=== PATIENT | male | born 1945 | race Caucasian/White ===

== ENCOUNTER 2023-11-25 08:01 | Day surgery (SDC) | payer MEDICARE ==
[~2023-11-25] VITALS: Ht 182.9 cm; Wt 97.5 kg
[~2023-11-25 08:01] MED LIST: ATORVASTATIN CA10 MG PO; BAYER ASPIRIN E81 MG PO; CYMBALTA30 MG PO; EPLERENONE25 MG PO; GABAPENTIN300 M2 PO; GLUCOTROL XL10 MG PO; JARDIANCE25 MG PO; METFORMIN HCL1000 MG PO; NEBIVOLOL PO; OMEPRAZOLE DR40 MG PO; PROSCAR5 MG PO; ZOFRAN4 MG/TAB PO
[2023-11-25] MEDS ORDERED: SODIUM CHLORIDE 0.9% 1,000 ML IV ONE (08:09)
[2023-11-25] MEDS ORDERED: FAMOTIDINE 10MG/ML 2ML SDV IV ONE (08:09)
[2023-11-25 10:03] VITALS: BP 120/70
[2023-11-25] MEDS ORDERED: PROPOFOL 200 MG/20 ML VIAL IV ONE (11:46)
[2023-11-25] MEDS ORDERED: GLYCOPYRROLATE 0.2 MG/ML IV ONE (11:46)
[2023-11-25] MEDS ORDERED: LIDOCAINE HCL 2% 2ML SDV IV ONE (11:46)
== END 2023-11-25 10:10 | disposition home or self-care (01) ==
LOC: ENDO 08:01 → ORM 11:40 → ENDO 11:40 → ORM 12:45
PROVIDERS: ATTEND Internal Medicine Gastroenterology
PROC: 0DB58ZX Excision of Esophagus, Via Natural or Artificial Opening Endoscopic, Diagnostic (ICD-10-PCS; principal; 2023-11-25)
PROC: 0DB78ZX Excision of Stomach, Pylorus, Via Natural or Artificial Opening Endoscopic, Diagnostic (ICD-10-PCS; 2023-11-25)
DX: K22.70 Barrett's esophagus without dysplasia (principal); K29.70 Gastritis, unspecified, without bleeding; K44.9 Diaphragmatic hernia without obstruction or gangrene; K31.89 Other diseases of stomach and duodenum; I10 Essential (primary) hypertension; E11.9 Type 2 diabetes mellitus without complications; K21.9 Gastro-esophageal reflux disease without esophagitis; E78.5 Hyperlipidemia, unspecified; D75.1 Secondary polycythemia; Z79.84 Long term (current) use of oral hypoglycemic drugs